=== PATIENT | female | born 1935 | race Caucasian/White ===

== ENCOUNTER 2019-02-14 10:17 | Observation (INO) | payer MEDICARE, BC ==
[2019-02-14] MEDS ORDERED: Sodium Chloride 0.9% 1,000 ML IV SCH (10:50)
[2019-02-14] MEDS ORDERED: cefTRIAXone 1 GM in Sodium Chloride 0.9% 50 ML IV SCH (12:00)
--- NOTE | 2019-02-14 12:03 | CR ---
DATE OF SERVICE: 02/14/19 CLINICAL DATA: Sepsis. AP AND LATERAL CHEST: No priors. The patient is status post median sternotomy. The heart size is normal. There is calcification of the aortic arch. There is eventration of the right hemidiaphragm. There are densities in both lung bases consistent with basilar atelectasis or infiltrate. Pneumonia should be considered. No pneumothorax. No pleural effusions. [id number] MTDD
[2019-02-14] MEDS: D5 1/2 NS w/ 20 mEq/L KCl 1,000 ML IV SCH ×2 (14:45→23:34)
--- NOTE | 2019-02-14 18:10 | ER ---
REASON FOR ADMISSION: UTI and weakness. HISTORY: This delightful 83-year-old woman lives alone near [place]. Apparently, 4 days ago, she developed some urinary frequency and dysuria possibly accompanied by some fever. She called into her provider and Macrobid was ordered from the pharmacy by phone. She started taking it at that same day and her symptoms seemed to improve slightly, but were still present until today. Beginning last night and including this morning, she developed increasing weakness, myalgias, and possibly fever. Her son came to spend the evening with her and she fell at least 1 time, but she did not suffer any injuries. Because of this, the ambulance was called and she was transported here by ambulance. En route, her blood pressure was 120 systolic, ranging between 120 and 104. She was given 500 mL of normal saline IV while being transferred. She denies any shortness of breath, cough or chest pain. PAST MEDICAL HISTORY: Significant for: 1. Hypertension. 2. History of coronary artery disease with stenting in 2014. 3. History of several prior UTIs. The remainder of her history is unobtainable at this time. MEDICATIONS: Include: 1. Lisinopril. 2. Macrobid. 3. Hydrochlorothiazide. 4. Metoprolol. We are currently trying to obtain the list of her medications with the doses. ALLERGIES: TO PENICILLIN AND DEMEROL. FAMILY HISTORY: Reviewed and noncontributory. REVIEW OF SYSTEMS: Pertinent positives and negatives as listed in the HPI. PHYSICAL EXAMINATION: GENERAL: She is alert, pleasant, and talkative and in no acute distress. VITAL SIGNS: Blood pressure is 114/52, heart rate 77, she is afebrile, respiration rate 16, O2 sats 99% on room air. HEENT: No conjunctivitis or scleral icterus. Oropharynx seems dry. Otherwise unremarkable. NECK: Supple. No JVD. CHEST: Clear to auscultation with good air exchange bilaterally and no wheezes, rhonchi, or rales. CARDIAC: Regular rate without murmur. ABDOMEN: Soft and nontender. No guarding or rebound. No hepatosplenomegaly or palpable masses. There is no CVA tenderness. EXTREMITIES: Normal pulses. No edema. No deformities. SKIN: No rashes. NEUROLOGIC: She is alert. Her face is symmetrical. Pupils equally round and reactive to light. She moves all 4 extremities equally well. Sensation is intact. LABORATORY DATA: Her CBC is normal with a WBC of 10,000 and hemoglobin of 12.1. Her CMP is unremarkable except for a potassium of 2.9. She has no elevated liver enzymes. Her creatinine is normal. Her chest x-ray shows no active pulmonary disease, although this was a portable film. An influenza swab was obtained and was negative. IMPRESSION: 1. Weakness, myalgias, and possible syncopal episodes. 2. Recent urinary tract infection. 3. Possible urosepsis. 4. Hypokalemia. 5. History of coronary artery disease. 6. History of hypertension. PLAN: She will be admitted to the hospital. We will continue on some gentle IV hydration. Her low potassium will be treated with KCl IV cocktail. She will be given 20 mEq over 2 hours time and then potassium will be added to her maintenance IV. Blood cultures were obtained on admission and we will await the results of these. I will start her off on Rocephin 1 g IV daily and that should do the trick for her. This is explained to the patient and her . I do not anticipate that she will need to be here more than a couple of days. All questions were answered. They understand and agree. MAGGIE /[id number]
[2019-02-15] MEDS: Hydrochlorothiazide 25 MG Tab PO SCH (07:14)
[2019-02-15] MEDS: Omeprazole 20 MG Cap.CR PO SCH (07:15)
[2019-02-15] MEDS: Metoprolol Succinate 25 MG Tab.ER PO SCH (07:15)
[2019-02-15] MEDS: Cyanocobalamin (Vitamin B12) 1,000 MCG Tab PO SCH (07:15)
[2019-02-15] MEDS: Pravastatin 20 MG Tab PO SCH (07:15)
[2019-02-15] MEDS: Aspirin 81 MG Tab.EC PO SCH (07:15)
[2019-02-15] MEDS: Oxybutynin 5 MG Tab.ER PO SCH (07:16)
--- NOTE | 2019-02-15 09:11 | PN ---
DATE OF VISIT: 02/15/2019 SUBJECTIVE: Dena still feels very tired and "worn out" this morning as she was just admitted last night. Her appetite is decreased. OBJECTIVE: VITAL SIGNS: She remains afebrile. Her blood pressure is 117/63, her pulse is 70, respirations 18, and O2 saturation 93% on room air. HEENT: Unremarkable. CHEST: Clear. She does have a few crackles at the bases. CARDIAC: Regular rate without murmur. ABDOMEN: Soft and nontender. LABORATORY DATA: Pending at this time, BMP and CBC. We will go ahead and get a chest x-ray this morning as well. ASSESSMENT: Stable at this time, with probable urosepsis. She states that she felt like she had the flu a couple of days ago with myalgias and possibly some fever, and she did cough a bit last night, although, her nasal swab for influenza A and B was negative yesterday. PLAN: Continue with antibiotics. MAGGIE /[id number] MTDNelson
[2019-02-15] MEDS: cefTRIAXone 1 GM in Sodium Chloride 0.9% 50 ML IV SCH (09:53)
[2019-02-15] MEDS ORDERED: Azithromycin 500 MG AdvVial IV SCH (10:45)
[2019-02-15] MEDS: Azithromycin 500 MG in Sodium Chloride 0.9% 250 ML IV SCH (11:28)
[2019-02-15] MEDS: D5 1/2 NS w/ 20 mEq/L KCl 1,000 ML IV SCH (14:18)
[2019-02-16] MEDS: D5 1/2 NS w/ 20 mEq/L KCl 1,000 ML IV SCH (00:52)
[2019-02-16] MEDS: Aspirin 81 MG Tab.EC PO SCH (07:31)
[2019-02-16] MEDS: Oxybutynin 5 MG Tab.ER PO SCH (07:31)
[2019-02-16] MEDS: Pravastatin 20 MG Tab PO SCH (07:31)
[2019-02-16] MEDS: Omeprazole 20 MG Cap.CR PO SCH (07:31)
[2019-02-16] MEDS: Lactobacillus Acidophilus/Lactobacillus Sporogenes (Probiotic) Tab PO SCH (07:31)
[2019-02-16] MEDS: Metoprolol Succinate 25 MG Tab.ER PO SCH (07:31)
[2019-02-16] MEDS: Hydrochlorothiazide 25 MG Tab PO SCH (07:31)
[2019-02-16] MEDS: Cyanocobalamin (Vitamin B12) 1,000 MCG Tab PO SCH (07:32)
[2019-02-16] MEDS: cefTRIAXone 1 GM in Sodium Chloride 0.9% 50 ML IV SCH (09:16)
[2019-02-16] MEDS: Azithromycin 500 MG in Sodium Chloride 0.9% 250 ML IV SCH (10:09)
--- NOTE | 2019-02-16 10:51 | PN ---
DATE OF VISIT: 02/16/2019 Dena was feeling very tired and worn out yesterday morning and overall just felt worse than she did relate the night of her admission. Her chest x-ray yesterday looked like her basilar infiltrates were slightly more than from the x-ray on admission. I therefore added azithromycin 500 mg IV daily to her antibiotic regimen, so she is now on both Rocephin and azithromycin. She has remained afebrile and actually this morning feels quite a bit better apart from her appetite being poor. Last night, she had a couple of loose bowel movements and I did order a stool for C difficile antigen, that result is pending. This morning, however, she has no more diarrhea. PHYSICAL EXAMINATION: GENERAL: She is afebrile. CHEST: Clear this morning. ABDOMEN: Soft. CARDIAC: Regular rate without murmur. IMPRESSION: Pneumonia, improving. PLAN: We will see how she does throughout the day and most likely she would be able to go home tomorrow. I will check a chest x-ray in the morning and a CBC. MAGGIE /[id number]
[2019-02-17] MEDS: Pravastatin 20 MG Tab PO SCH (07:27)
[2019-02-17] MEDS: Oxybutynin 5 MG Tab.ER PO SCH (07:27)
[2019-02-17] MEDS: Metoprolol Succinate 25 MG Tab.ER PO SCH (07:27)
[2019-02-17] MEDS: Hydrochlorothiazide 25 MG Tab PO SCH (07:29)
[2019-02-17] MEDS: Aspirin 81 MG Tab.EC PO SCH (07:29)
[2019-02-17] MEDS: Cyanocobalamin (Vitamin B12) 1,000 MCG Tab PO SCH (07:29)
[2019-02-17] MEDS: Omeprazole 20 MG Cap.CR PO SCH (07:29)
[2019-02-17] MEDS: Lactobacillus Acidophilus/Lactobacillus Sporogenes (Probiotic) Tab PO SCH (07:29)
--- NOTE | 2019-02-17 08:03 | CR ---
DATE OF SERVICE: 02/15/19 CLINICAL DATA: Cough. PA AND LATERAL CHEST: Comparison is made to a prior exam dated 02/14/19. The heart size is normal. There are persistent densities in both lung bases, consistent with basilar atelectasis or infiltrate. Again pneumonia should be considered. There is blunting of both costophrenic angles posteriorly on the lateral view consistent with small bilateral pleural effusions. The exam is otherwise unchanged from the prior. No pneumothorax. [id number] MTDD
[2019-02-17] MEDS: cefTRIAXone 1 GM in Sodium Chloride 0.9% 50 ML IV SCH (09:00)
--- NOTE | 2019-02-17 09:20 | CR ---
DATE OF SERVICE: 02/15/2019 CLINICAL DATA: Cough PA and Lateral Chest: Comparison is made to a prior exam dated 02/14/19. The heart size is normal. There are persistent densities in both lung bases, consistent with basilar atelectasis or infiltrate. Again pneumonia should be considered. There is blunting of both costophrenic angles posteriorly on the lateral view consistent with small bilateral pleural effusions. The exam is otherwise unchanged from the prior. No pneumothorax. MTDD
[2019-02-17] MEDS: Azithromycin 500 MG in Sodium Chloride 0.9% 250 ML IV SCH (10:00)
--- NOTE | 2019-02-17 10:18 | CR ---
DATE OF SERVICE: 02/17/19 CLINICAL DATA: COUGH PA AND LATERAL CHEST: Comparison made to a prior exam dated 02/15/19. The heart size is stable. Both lung bases do appear slightly clearer than the prior exam. The exam is otherwise unchanged. No new abnormalities. [id number] [facility]
--- NOTE | 2019-02-18 07:42 | DISCH ---
ADMISSION DIAGNOSIS: Urosepsis. DISCHARGE DIAGNOSES: Urinary tract infection and community acquired pneumonia. HOSPITAL COURSE: This 83-year-old woman was brought by ambulance because of weakness and myalgias, as well as possible fever and one episode of falling down due to the weakness. She had recently been started on antibiotics 4 days previously for lower UTI (Macrobid). On admission, she had no fever, but her urinalysis was consistent with UTI. Her chest x-ray did show some possible early infiltrates at both bases versus atelectasis. She had significant hypokalemia with a potassium of 2.7. Her white count was 10,000. On the following day, she felt weaker, and although she was overall worse than the night before, she had been started on Rocephin 1 g IV daily. Her chest x-ray did look like she had more prominent infiltrates at the bases. Again, there was a question as to whether these represented atelectasis versus infiltrates, but we went ahead and started her on azithromycin. She received 500 mg IV daily and throughout the hospitalization, she also received Rocephin 1 g IV daily. She had a couple of spells of loose stools, which resolved spontaneously. Although initially we ordered C difficile antigen assay, her stools became formed again, so that became less of a concern. Her hypokalemia was corrected with IV fluids, and we were able to get her off IV fluids, but continued her IV antibiotics throughout her hospitalization. Her white blood count came down from 10,000 to 5,200. Her most recent CMP was within normal limits. We did obtain blood cultures on admission and both her urine and blood grew nothing. She was able to tolerate a general diet and had a stable day yesterday. She gained more strength and remained stable. Her O2 sats are 95% this morning. IMPRESSION: Possible urosepsis versus community-acquired pneumonia. I suspect the latter, that came on the tail of a lower urinary tract infection. PLAN: After receiving today's dose of Rocephin and azithromycin, we will go ahead and discharge her. She will be given 2 more 500 mg tablets of azithromycin to take tomorrow and Sunday. I have urged her to follow up with her provider in [place], where she lives, on Sunday. Should she feel any worsening of her symptoms, of course, she should give us a call or return for another check. She understands and agrees with this plan. All questions were answered. RALPH/MARISELA /[id number]
== END 2019-02-17 10:55 | disposition home or self-care (01) ==
LOC: LB.ED 10:17 → LB.MS 12:14
PROVIDERS: ADMIT Surgery; ATTEND Surgery
DX: N39.0 Urinary tract infection, site not specified (principal); J18.9 Pneumonia, unspecified organism; E87.6 Hypokalemia; I10 Essential (primary) hypertension; I25.10 Atherosclerotic heart disease of native coronary artery without angina pectoris; Z88.0 Allergy status to penicillin; Z88.5 Allergy status to narcotic agent; Z95.5 Presence of coronary angioplasty implant and graft; Z79.899 Other long term (current) drug therapy
CPT/HCPCS: 36415; 71046; 80048; 80053; 81001; 81003; 83880; 84132; 84484; 85025; 87040; 87086; 87804; 93005; 96365; 96366; 96367; 96368; 96376; 99217; 99219; 99224; 99285; A9270; G0378; J0456; J0696; J3480; J7030; J7050